=== PATIENT | female | born 1995 | race Two or more races ===

== ENCOUNTER 2019-09-21 19:16 | Observation (INO) | payer SELFPAY ==
[2019-09-21] MEDS ORDERED: IV RINGERS,LACTATED 1000ML 1,000 ML IV PRN (19:30)
[2019-09-21] MEDS ORDERED: ACETAMINOPHEN 325 MG TABLET. PO PRN (19:30)
[2019-09-21 19:56] LABS: BILIRUBIN,URINE NEGATIVE (NEG); CLARITY,URINE CLEAR; NITRITE,URINE NEGATIVE (NEG); PROTEIN,URINE NEGATIVE (NEG-TRACE); UROBILINOGEN,URINE 0.2 mg/dL (0.2 mg/dL)
[2019-09-21 20:03] LABS: COLOR,URINE STRAW
[2019-09-21 20:04] LABS: RBC,URINE OCC /HPF (0-2)
[2019-09-21 20:05] LABS: BACTERIA,URINE MANY /HPF (0-FEW); SQUAMOUS EPITHELIAL CELL,UR MANY /LPF
[2019-09-21 20:07] LABS: BARBITURATES NEG (NEG); BENZODIAZEPINES NEG (NEG); CANNABINOIDS NEG (NEG); COCAINE NEG (NEG); METHADONE NEG (NEG); OPIATES NEG (NEG); PHENCYCLIDINE NEG (NEG)
[2019-09-21 20:08] LABS: AMNIO PT NEGATIVE
[2019-09-21 20:09] LABS: AMPHETAMINE/METHAMPHETAMINE NEG (NEG)
== END 2019-09-21 21:21 | disposition home or self-care (01) ==
LOC: 3 SO LND 19:16
PROVIDERS: ADMIT Obstetrics & Gynecology; ATTEND Obstetrics & Gynecology
DX: O62.9 Abnormality of forces of labor, unspecified (principal); Z3A.38 38 weeks gestation of pregnancy
CPT/HCPCS: 36415; 80307; 81001; 84112; 87086; 87186; G0378; G0379

== ENCOUNTER 2019-09-22 01:10 | Inpatient (IN) | payer SELFPAY ==
[~2019-09-22] VITALS: Ht 152.4 cm; Wt 74.8 kg
[2019-09-22] MEDS ORDERED: IV RINGERS,LACTATED 1000ML 1,000 ML IV SCH ×3 (01:16→13:07)
[2019-09-22] MEDS ORDERED: OXYTOCIN 30 UNIT/500 ML PREMIX 500 ML IV PRN ×3 (03:15→18:30)
[2019-09-22] MEDS ORDERED: LIDOCAINE 1% PF 30 ML VIAL. INJ PRN (03:15)
[2019-09-22] MEDS ORDERED: ONDANSETRON PF 4 MG/2 ML VIAL. IV PRN ×2 (03:15→18:30)
[2019-09-22] MEDS ORDERED: MAG HYDROX/ALUMINUM HYD/SIMETH 30 ML ORAL.SUSP PO PRN ×3 (03:15→18:30)
[2019-09-22] MEDS ORDERED: TERBUTALINE 1 MG/ML VIAL. SQ PRN (03:15)
[2019-09-22] MEDS ORDERED: BUTORPHANOL 2 MG/ML VIAL. IV PRN ×2 (03:15)
[2019-09-22] MEDS ORDERED: NALBUPHINE 10 MG/ML AMPUL. IV PRN (03:15)
[2019-09-22] MEDS ORDERED: 0.9 % SODIUM CHLORIDE 10 ML DISP.SYRIN. IV PRN ×3 (03:15→18:30)
[2019-09-22] MEDS ORDERED: ACETAMINOPHEN 325 MG TABLET. PO PRN ×2 (03:15→15:15)
[2019-09-22] MEDS ORDERED: IBUPROFEN 400 MG TABLET. PO PRN (03:15)
[2019-09-22] MEDS ORDERED: fentaNYL PF VIAL 100 MCG/2 ML VIAL IV PRN (03:15)
[2019-09-22 03:46] LABS: BASO % 0 % (0-3); EOS # 0.1 x10^3/uL (0.0-0.7); EOS % 1 % (0-3); HEMATOCRIT 35.5 % (36.0-47.0); HEMOGLOBIN 12.2 g/dL (12.0-15.5); LYMPH # 2.4 x10^3/uL (1.0-4.8); LYMPH % 23 % (24-48); MEAN CORPUSCULAR HEMOGLOBIN 32 pg (25-35); MEAN CORPUSCULAR HGB CONC 35 g/dL (31-37); MEAN CORPUSCULAR VOLUME 93 fL (79-100); MONO # 0.7 x10^3/uL (0.0-1.1); MONO % 7 % (0-9); NEUT # 7.1 x10^3/uL (1.8-7.7); NEUT % 69 % (31-73); PLATELET COUNT 160 x10^3/uL (140-400); RED BLOOD COUNT 3.83 x10^6/uL (3.50-5.40); RED CELL DISTRIBUTION WIDTH 13.6 % (11.5-14.5); WHITE BLOOD COUNT 10.3 x10^3/uL (4.0-11.0)
[2019-09-22 03:47] VITALS: BP 116/69
[2019-09-22] MEDS ORDERED: IV RINGERS,LACTATED 1000ML 1,000 ML IV PRN ×2 (04:00)
[2019-09-22] MEDS ORDERED: OXYTOCIN PREMIX 30 UNIT/500 ML NS BAG. IV ONE (11:00)
[2019-09-22] MEDS ORDERED: ROPIVacaine 0.2% PF 10 ML VIAL. ONE (11:00)
[2019-09-22] MEDS ORDERED: ONDANSETRON PF 4 MG/2 ML VIAL. IVP PRN (13:15)
[2019-09-22] MEDS ORDERED: ePHEDrine PF IN SALINE 50 MG/10 ML SYRINGE. IV PRN (13:15)
[2019-09-22] MEDS ORDERED: diphenhydrAMINE 50 MG/ML VIAL IV PRN (13:15)
[2019-09-22] MEDS ORDERED: IV RINGERS,LACTATED 500ML 500 ML IV PRN (13:15)
[2019-09-22] MEDS ORDERED: PROCHLORPERAZINE 10 MG/2 ML VIAL. IV PRN (13:15)
[2019-09-22] MEDS ORDERED: L&D EPIDURAL CASSETTE 100 ML EPID PRN (13:15)
[2019-09-22] MEDS ORDERED: NALOXONE 0.4 MG/ML VIAL. IV PRN (13:15)
[2019-09-22] MEDS ORDERED: fentaNYL PF VIAL 100 MCG/2 ML VIAL EPID PRN (13:15)
[2019-09-22] MEDS ORDERED: ROPIVacaine 0.2% PF 10 ML VIAL. EPID PRN (13:15)
[2019-09-22] MEDS ORDERED: BUPIVACAINE MPF 0.25% 30 ML VIAL. EPID PRN (13:15)
[2019-09-22] MEDS: L&D EPIDURAL SYRINGE 50 ML EPID PRN ×2 (13:29→17:38)
--- NOTE | 2019-09-22 15:12 | PDOC ---
GENERAL General: 23 yrs old Trin[place] Lady [id number] EDC 10/07/19. Admitted with SROM and having Mild Contractions. VITAL SIGNS Vital Signs/I&O: Vital Signs Date Time Temp Pulse Resp B/P (MAP) Pulse Ox O2 Delivery O2 Flow Rate FiO2 09/22/19 13:31 16 98 Room Air 09/22/19 03:47 98.4 88 116/69 (85) 98.4 ALLERGIES Allergies: Allergies Coded Allergies Type Severity Reaction Last Updated Verified No Known Drug Allergies 09/21/19 No MEDS Medications: Current Medications Medications (Trade) Dose Ordered Sig/Arturo Route PRN Reason Start Time Stop Time Status Last Admin Dose Admin Ringer's Solution 1,000 ml @ 125 mls/hr Q8H IV 09/22/19 01:16 09/22/19 03:56 DC 09/22/19 03:37 Fentanyl Citrate (Fentanyl 2ml Vial) 100 mcg PRN 1X PRN EPID FOR ANESTHESIA 09/22/19 13:15 09/23/19 13:14 09/22/19 13:31 Fentanyl Citrate 50 ml @ 14 mls/hr CONT PRN EPID PAIN 09/22/19 13:15 09/22/19 13:29 LAB Lab: Laboratory Tests Test 09/22/19 03:00 White Blood Count 10.3 x10^3/uL (4.0-11.0) Red Blood Count 3.83 x10^6/uL (3.50-5.40) Hemoglobin 12.2 g/dL (12.0-15.5) Hematocrit 35.5 % (36.0-47.0) L Mean Corpuscular Volume 93 fL (79-100) Mean Corpuscular Hemoglobin 32 pg (25-35) Mean Corpuscular Hemoglobin Concent 35 g/dL (31-37) Red Cell Distribution Width 13.6 % (11.5-14.5) Platelet Count 160 x10^3/uL (140-400) Neutrophils (%) (Auto) 69 % (31-73) Lymphocytes (%) (Auto) 23 % (24-48) L Monocytes (%) (Auto) 7 % (0-9) Eosinophils (%) (Auto) 1 % (0-3) Basophils (%) (Auto) 0 % (0-3) Neutrophils # (Auto) 7.1 x10^3/uL (1.8-7.7) Lymphocytes # (Auto) 2.4 x10^3/uL (1.0-4.8) Monocytes # (Auto) 0.7 x10^3/uL (0.0-1.1) Eosinophils # (Auto) 0.1 x10^3/uL (0.0-0.7) Basophils # (Auto) 0.0 x10^3/uL (0.0-0.2) Treponema pallidum Antibody Nonreactive (Nonreactive) Laboratory Tests 09/22/19 03:00 AIDAN MTZ MD Sep 22, 2019 15:12
[2019-09-22] MEDS ORDERED: ZOLPIDEM 5 MG TABLET. PO PRN ×2 (15:15→18:30)
[2019-09-22] MEDS ORDERED: HYDROCORTISONE 1% TOPICAL OINTMENT 30GM TUBE. TP PRN ×2 (15:15→18:30)
[2019-09-22] MEDS ORDERED: PHENYLEPH/MINERAL OIL/PETROLAT RECTAL OINTMENT TUBE. RC PRN (15:15)
[2019-09-22] MEDS ORDERED: BENZOCAINE 20% TOPICAL AEROSOL SPRAY 57GM CAN. TP PRN (15:15)
[2019-09-22] MEDS ORDERED: SIMETHICONE 80 MG TAB.CHEW PO PRN (15:15)
[2019-09-22] MEDS ORDERED: MMR per PROTOCOL. MC PRN ×2 (15:15→18:30)
[2019-09-22] MEDS ORDERED: diphenhydrAMINE HCL 25 MG CAPSULE PO PRN (15:15)
[2019-09-22] MEDS ORDERED: AMPICILLIN SODIUM 2 GM in IV NORMAL SALINE 100ML 100 ML IV ONE (18:00)
[2019-09-22] MEDS ORDERED: ceFAZolin 2GM PREMIX 2 GM/50 ML BAG IV ONE (18:00)
[2019-09-22] MEDS ORDERED: LIDOCAINE 2% PF 5 ML VIAL. ONE ×2 (18:15→18:31)
[2019-09-22] MEDS ORDERED: CITRIC ACID/SODIUM CITRATE 30 ML SOLUTION. PO ONE (18:15)
[2019-09-22] MEDS ORDERED: FAMOTIDINE 20 MG/2 ML VIAL ONE (18:29)
[2019-09-22] MEDS ORDERED: oxyCODONE/APAP 5/325 1 TAB TABLET PO PRN (18:30)
[2019-09-22] MEDS ORDERED: DOCUSATE SODIUM 100 MG CAPSULE. PO PRN (18:30)
[2019-09-22] MEDS ORDERED: diphenhydrAMINE ORAL ELIXIR 12.5 MG/5 ML ML PO PRN (18:30)
[2019-09-22] MEDS ORDERED: MORPHINE PF 10 MG/10 ML AMPUL. ONE (19:01)
[2019-09-22] MEDS ORDERED: fentaNYL PF VIAL 100 MCG/2 ML VIAL ONE (19:13)
[2019-09-22] MEDS ORDERED: PHENYLEPHRINE in 0.9% NACL PF 1 MG/10 ML SYRINGE. IV ONE (19:15)
[2019-09-22] MEDS ORDERED: OXYTOCIN 10 UNIT/ML VIAL. ONE (19:18)
--- NOTE | 2019-09-22 20:10 | HP ---
ADMIT DATE: 09/22/2019 CHIEF COMPLAINT AND HISTORY OF PRESENT ILLNESS: This patient is a 23-year-old Lao lady who is a 4, para 2, history of 1 . The patient had care at [facility] and the patient came into the hospital Labor and Delivery with a history of having ruptured membranes and also having contractions and the patient admitted to the hospital. PHYSICAL EXAMINATION: Reveals vital signs being stable. Fundal height about 37 weeks. Her due date is 10/07/2019. heart tones are 146 per minute. Vertex presenting and leaking clear amniotic fluid. Pelvic exam shows cervix about 2-3 cm dilated. DIAGNOSES: 4, para 2, premature, premature labor, and spontaneous rupture of membranes. PLAN: Vaginal delivery and expecting management. AIDAN MTZ MD DR: RITO/douglas JOB#: [id number] / [id number]
[2019-09-22] MEDS: KETOROLAC 30 MG/ML VIAL. IV PRN (20:59)
--- NOTE | 2019-09-22 22:47 | OP ---
DATE OF SURGERY: 09/22/2019 PREOPERATIVE DIAGNOSES: 4, para 2, spontaneous rupture of membranes, labor, failure to progress. POSTOPERATIVE DIAGNOSES: 4, para 2, spontaneous rupture of membranes, labor, failure to progress. OPERATION PERFORMED: Lower segment section. OPERATIVE PROCEDURE: The patient was taken to the operating room. Augmentation of the epidural block was done. The patient was placed in a dorsal supine position. Troy catheter introduced in the bladder for continuous bladder drainage. Lower abdomen was prepped and draped in the usual manner. Pfannenstiel incision was done. Abdomen opened in layers and bladder flap peritoneum was dissected. Bladder was pushed way down the lower segment of the uterus and an incision was made on the lower segment of the uterus and was extended on either side using index fingers. A live male weighing 8 pounds 10 ounces, delivered at 1859 hours and with the score of 8, 9 and 9 without any problem. Cord was clamped and cut. Cord pHs were sent for and placenta removed. Uterus sutured in 2 layers using #1 chromic catgut sutures. Reperitonealization was done with continuous 0 chromic catgut sutures. Uterus placed in the abdominal cavity. All the blood clots were removed from the abdomen, and abdomen closed in layers using continuous 0 chromic catgut sutures for the peritoneum, the muscle, the fascia, 3-0 plain continuous sutures applied for subcutaneous tissue and 3-0 Vicryl subcutaneous sutures were placed. A pressure dressing was given. The patient was sent to the recovery room in good condition. No complications encountered at the time of the procedure. Estimated blood loss about 800 mL. Postoperative condition is stable. Baby is referred to process artist for further care and treatment. Mother tolerated the delivery well. No complications at this time. AIDAN MTZ MD DR: RITO/douglas JOB#: [id number] / [id number]
[2019-09-22 23:00] VITALS: BP 107/59
[2019-09-23] MEDS ORDERED: IBUPROFEN 200 MG TABLET. PO SCH
[2019-09-23 02:30] VITALS: BP 94/58
[2019-09-23 06:00] VITALS: BP 103/47
[2019-09-23] MEDS: KETOROLAC 30 MG/ML VIAL. IV PRN (06:04)
[2019-09-23] MEDS: FERROUS SULFATE 325 MG TABLET. PO SCH ×2 (08:00→16:57)
[2019-09-23] MEDS ORDERED: FERROUS SULFATE 325 MG TABLET. PO SCH (08:00)
[2019-09-23] MEDS: oxyCODONE/APAP 5/325 1 TAB TABLET PO PRN ×4 (08:30→20:49)
--- NOTE | 2019-09-23 08:36 | PDOC ---
GENERAL General: Pt feeling much better today. Breast feeding the Baby. VITAL SIGNS Vital Signs/I&O: Vital Signs Date Time Temp Pulse Resp B/P (MAP) Pulse Ox O2 Delivery O2 Flow Rate FiO2 09/23/19 06:00 98.8 82 18 103/47 (65) 98 Room Air 98.8 I & O 09/22/19 09/22/19 09/23/19 15:00 23:00 07:00 Intake Total 100 ml Output Total 400 ml Balance -300 ml ALLERGIES Allergies: Allergies Coded Allergies Type Severity Reaction Last Updated Verified No Known Drug Allergies 09/21/19 No MEDS Medications: Current Medications Medications (Trade) Dose Ordered Sig/Arturo Route PRN Reason Start Time Stop Time Status Last Admin Dose Admin Fentanyl Citrate (Fentanyl 2ml Vial) 100 mcg PRN 1X PRN EPID FOR ANESTHESIA 09/22/19 13:15 09/23/19 13:14 09/22/19 13:31 Fentanyl Citrate 50 ml @ 14 mls/hr CONT PRN EPID PAIN 09/22/19 13:15 09/22/19 17:38 Oxycodone/ Acetaminophen (Percocet 5/325) 2 tab PRN Q4HRS PRN PO MODERATE PAIN, SEVERE PAIN 09/22/19 15:15 09/23/19 08:30 Ephedrine Sulfate (Akovaz) 10 mg 1X ONCE IV 09/22/19 15:00 09/22/19 15:37 DC 09/22/19 15:39 Ketorolac Tromethamine (Toradol 30mg Vial) 30 mg PRN Q6HRS PRN IV PAIN 09/22/19 20:00 09/27/19 19:59 09/23/19 06:04 LAB Lab: Laboratory Tests Test 09/23/19 06:55 Hematocrit 27.1 % (36.0-47.0) L Laboratory Tests 09/23/19 06:55 ASSESSMENT & PLAN A&P Vital signs stable. Urine clear. Abdomen soft. Not much vaginal bleeding. AIDAN MTZ MD Sep 23, 2019 08:36
[2019-09-23 11:36] VITALS: BP 110/60
[2019-09-23] MEDS: IBUPROFEN 200 MG TABLET. PO SCH ×2 (13:38→20:48)
--- NOTE | 2019-09-23 17:01 | NUR ---
patient complaing of headache in neck and head area,instructed to drink caffeine and increase fluid po. to lie flat to see if relief
[2019-09-23] MEDS: DOCUSATE SODIUM 100 MG CAPSULE. PO PRN (17:32)
[2019-09-23 18:08] VITALS: BP 102/59
[2019-09-23 20:00] VITALS: BP 92/53
[2019-09-24 03:55] VITALS: BP 104/61
[2019-09-24] MEDS: IBUPROFEN 200 MG TABLET. PO SCH ×3 (04:09→20:21)
[2019-09-24] MEDS: oxyCODONE/APAP 5/325 1 TAB TABLET PO PRN ×4 (04:10→20:21)
--- NOTE | 2019-09-24 08:27 | PDOC ---
GENERAL General: Patient doing ok. Baby doing well. VITAL SIGNS Vital Signs/I&O: Vital Signs Date Time Temp Pulse Resp B/P (MAP) Pulse Ox O2 Delivery O2 Flow Rate FiO2 09/24/19 04:10 20 97 Room Air 09/24/19 03:55 97.7 76 104/61 (75) 97.7 I & O 09/23/19 09/23/19 09/24/19 15:00 23:00 07:00 Intake Total 360 ml 250 ml Output Total 950 ml Balance -590 ml 250 ml ALLERGIES Allergies: Allergies Coded Allergies Type Severity Reaction Last Updated Verified No Known Drug Allergies 09/21/19 No ASSESSMENT & PLAN A&P Vital signs stable. Lochia normal. Plan dismissal in am.tomorrow. AIDAN MTZ MD Sep 24, 2019 08:27
[2019-09-24] MEDS: DOCUSATE SODIUM 100 MG CAPSULE. PO PRN ×2 (08:51→20:20)
[2019-09-24] MEDS: FERROUS SULFATE 325 MG TABLET. PO SCH ×2 (08:51→20:21)
[2019-09-24] MEDS: MAGNESIUM HYDROXIDE 2,400 MG/30 ML ORAL.SUSP. PO PRN (08:52)
[2019-09-24 08:56] VITALS: BP 109/66
--- NOTE | 2019-09-24 12:40 | NUR ---
Dr. Cervantes here to see pt and used the power driven brush maker phone to talk with the patient. Dr. Cervantes told patient to continue to take pain meds and to lay down when her head is hurting. He said someone would check in with her tomorrow. Encouraged po intake and offered caffeine. Pt refused caffeine but agreed to drink plenty of water. Will continue to monitor and support.
--- NOTE | 2019-09-24 12:59 | PDOC ---
Date and Time Called to evaluate headache after delivery. [id number] Patient had labor epidural and c section 09/22. 09/23 developed positional headache. LEYVA is worse when up, complete resolution when supine. Denies visual changes, nausea,vomiting, nuchal rigidity. RN reports that she is afebrile. Sitting up eating lunch with what appears to be minimal discomfort. Imp Dural puncture headache Plan Options discussed with patient, plan is to wait and reevaluate tomorrow. She may need a blood patch at that point. Current Medications Current Medications Ringer's Solution 1,000 ml @ 125 mls/hr Q8H IV Last administered on 09/22/19at 03:37; Start 09/22/19 at 01:16; Stop 09/22/19 at 03:56; Status DC Sodium Chloride (Normal Saline Flush) 3 ml QSHIFT PRN IV AFTER MEDS AND BLOOD DRAWS; Start 09/22/19 at 03:15; Stop 09/23/19 at 16:40; Status DC Ringer's Solution 1,000 ml @ 125 mls/hr Q8H IV ; Start 09/22/19 at 03:06; Stop 09/22/19 at 03:56; Status DC Nalbuphine HCl (Nubain) 10 mg PRN Q1HR PRN IV Severe labor pain; Start 09/22/19 at 03:15; Stop 09/23/19 at 16:40; Status DC Butorphanol Tartrate (Stadol) 1 mg PRN Q1HR PRN IV mild to moderate labor pain; Start 09/22/19 at 03:15; Stop 09/23/19 at 16:40; Status DC Butorphanol Tartrate (Stadol) 2 mg PRN Q1HR PRN IV Severe labor pain; Start 09/22/19 at 03:15; Stop 09/23/19 at 16:40; Status DC Fentanyl Citrate (Fentanyl 2ml Vial) 100 mcg PRN Q30MIN PRN IV Severe pain; Start 09/22/19 at 03:15; Stop 09/23/19 at 16:40; Status DC Acetaminophen (Tylenol) 650 mg PRN Q6HRS PRN PO MILD PAIN / TEMP; Start 09/22/19 at 03:15; Stop 09/22/19 at 15:46; Status DC Ondansetron HCl (Zofran) 4 mg PRN Q4HRS PRN IV NAUSEA/VOMITING 1ST CHOICE; Start 09/22/19 at 03:15; Stop 09/22/19 at 15:47; Status DC Al Hydroxide/Mg Hydroxide (Mylanta Plus Xs) 30 ml PRN Q4HRS PRN PO HEARTBURN / GAS; Start 09/22/19 at 03:15; Status Cancel Terbutaline Sulfate (Brethine) 0.25 mg 1X PRN PRN SQ SEE COMMENTS; Start 09/22/19 at 03:15; Stop 09/23/19 at 03:14; Status DC Lidocaine HCl (Xylocaine 1% Pf 30ml Vial) 30 ml 1X PRN PRN INJ SEE COMMENTS; Start 09/22/19 at 03:15; Stop 09/23/19 at 16:40; Status DC Oxytocin/Sodium Chloride 500 ml @ 0 mls/hr CONT PRN PRN IV Post delivery bleeding; Start 09/22/19 at 03:15; Stop 09/23/19 at 16:40; Status DC Ibuprofen (Motrin) 800 mg PRN Q6HRS PRN PO MODERATE PAIN 4-6; Start 09/22/19 at 03:15; Stop 09/22/19 at 15:47; Status DC Ringer's Solution 1,000 ml @ 125 mls/hr Q8H PRN IV Hydration; Start 09/22/19 at 04:00; Stop 09/22/19 at 11:15; Status DC Ringer's Solution 1,000 ml @ 125 mls/hr Q8H PRN IV hydration Last administered on 09/23/19at 00:42; Start 09/22/19 at 04:00; Stop 09/23/19 at 16:40; Status DC Ringer's Solution 1,000 ml @ 1,000 mls/hr Q1H IV ; Start 09/22/19 at 13:07; Stop 09/22/19 at 14:06; Status DC Ringer's Solution 500 ml @ 500 mls/hr 1X PRN PRN IV HYPOTENSION; Start 09/22/19 at 13:15; Stop 09/23/19 at 13:14; Status DC Ephedrine Sulfate (ePHEDrine PF IN SALINE SYRINGE) 10 mg PRN Q2MIN PRN IV IF SBP<90; Start 09/22/19 at 13:15; Stop 09/23/19 at 16:40; Status DC Naloxone HCl (Narcan) 0.04 mg PRN Q1MIN PRN IV SEE COMMENTS; Start 09/22/19 at 13:15; Stop 09/23/19 at 16:40; Status DC Fentanyl Citrate (Fentanyl 2ml Vial) 100 mcg PRN 1X PRN EPID FOR ANESTHESIA Last administered on 09/22/19at 13:31; Start 09/22/19 at 13:15; Stop 09/23/19 at 13:14; Status DC Bupivacaine HCl (Sensorcaine Mpf 0.25%) 10 ml PRN 1X PRN EPID FOR ANESTHESIA; Start 09/22/19 at 13:15; Stop 09/23/19 at 13:14; Status DC Fentanyl Citrate 100 ml @ 14 mls/hr CONT PRN EPID PAIN; Start 09/22/19 at 13:15; Stop 09/23/19 at 16:40; Status DC Fentanyl Citrate 50 ml @ 14 mls/hr CONT PRN EPID PAIN Last administered on 09/22/19at 17:38; Start 09/22/19 at 13:15; Stop 09/23/19 at 16:40; Status DC Ondansetron HCl (Zofran) 4 mg PRN Q6HRS PRN IVP NAUSEA/VOMITING; Start 09/22/19 at 13:15; Status Cancel Prochlorperazine Edisylate (Compazine) 5 mg PRN Q6HRS PRN IV NAUSEA/VOMITING, 2ND CHOICE; Start 09/22/19 at 13:15; Stop 09/23/19 at 16:40; Status DC Diphenhydramine HCl (Benadryl) 12.5 mg PRN Q2HR PRN IV ITCHING; Start 09/22/19 at 13:15; Stop 09/23/19 at 16:40; Status DC Ropivacaine (Naropin 0.2%) 20 ml 1X PRN PRN EPID PER ANESTHESIA; Start 09/22/19 at 13:15; Stop 09/23/19 at 16:40; Status DC Ephedrine Sulfate (Akovaz) 50 mg STK-MED ONCE .ROUTE ; Start 09/22/19 at 14:57; Stop 09/22/19 at 14:57; Status DC Sodium Chloride (Normal Saline Flush) 10 ml QSHIFT PRN IV AFTER MEDS AND BLOOD DRAWS; Start 09/22/19 at 15:15; Stop 09/23/19 at 16:40; Status DC Oxytocin/Sodium Chloride 500 ml @ 62.5 mls/hr CONT PRN IV SEE I/O RECORD; Start 09/22/19 at 15:15; Stop 09/22/19 at 23:14; Status DC Acetaminophen (Tylenol) 650 mg PRN Q6HRS PRN PO MILD PAIN / TEMP; Start 09/22/19 at 15:15 Ibuprofen (Motrin) 600 mg Q6HRS PO Last administered on 09/24/19at 04:09; Start 09/22/19 at 18:00 Docusate Sodium (Colace) 100 mg PRN BID PRN PO CONSTIPATION Last administered on 09/24/19at 08:51; Start 09/22/19 at 15:15 Magnesium Hydroxide (Milk Of Magnesia) 2,400 mg PRN DAILY PRN PO CONSTIPATION Last administered on 09/24/19at 08:52; Start 09/22/19 at 15:15 Al Hydroxide/Mg Hydroxide (Mylanta Plus Xs) 30 ml PRN Q4HRS PRN PO HEARTBURN / GAS; Start 09/22/19 at 15:15; Status Cancel Simethicone (Gas-X) 80 mg PRN AFTMEALHC PRN PO GAS / BLOATING; Start 09/22/19 at 15:15 Diphenhydramine HCl (Benadryl) 25 mg PRN Q6HRS PRN PO ITCHING; Start 09/22/19 at 15:15 Benzocaine (Americaine) 1 spray PRN QID PRN TP TOPICAL PAIN; Start 09/22/19 at 15:15 Phenyleph/Shark Oil/Min Oil/Petrol (Preparation H) 1 helena PRN QID PRN RC RECTAL PAIN; Start 09/22/19 at 15:15 Hydrocortisone (Cortaid) 1 helena PRN QID PRN TP RECTAL PAIN; Start 09/22/19 at 15:15 Ferrous Sulfate (Feosol) 325 mg BIDWMEALS PO ; Start 09/23/19 at 08:00; Stop 09/22/19 at 20:05; Status DC Zolpidem Tartrate (Ambien) 5 mg PRN QHS PRN PO INSOMNIA, MAY REPEAT X1; Start 09/22/19 at 15:15; Status Cancel Info (Do NOT chart on this placeholder) 1 ea 1X PRN PRN MC SEE COMMENTS; Start 09/22/19 at 15:15; Status Cancel Info (Do NOT chart on this placeholder) 1 ea 1X PRN PRN MC SEE COMMENTS; Start 09/22/19 at 15:15; Status Cancel Oxycodone/ Acetaminophen (Percocet 5/325) 2 tab PRN Q4HRS PRN PO MODERATE PAIN, SEVERE PAIN Last administered on 09/24/19at 08:52; Start 09/22/19 at 15:15 Ephedrine Sulfate (Akovaz) 10 mg 1X ONCE IV ; Start 09/22/19 at 15:30; Stop 09/22/19 at 15:31; Status UNV Ephedrine Sulfate (Akovaz) 10 mg 1X ONCE IV Last administered on 09/22/19at 15:39; Start 09/22/19 at 15:00; Stop 09/22/19 at 15:37; Status DC Ampicillin Sodium 2 gm/Sodium Chloride 100 ml @ 200 mls/hr 1X ONCE IV ; Start 09/22/19 at 18:00; Stop 09/23/19 at 16:40; Status DC Lidocaine HCl (Lidocaine Pf 2% Vial) 5 ml STK-MED ONCE .ROUTE ; Start 09/22/19 at 18:15; Stop 09/22/19 at 18:15; Status DC Cefazolin Sodium/ Dextrose 50 ml @ 100 mls/hr 1X ONCE IV ; Start 09/22/19 at 18:15; Stop 09/23/19 at 16:40; Status DC Citric Acid/ Sodium Citrate (Bicitra) 30 ml 1X ONCE PO ; Start 09/22/19 at 18:15; Stop 09/23/19 at 16:40; Status DC Famotidine (Pepcid Vial) 20 mg STK-MED ONCE .ROUTE ; Start 09/22/19 at 18:29; Stop 09/22/19 at 18:29; Status DC Sodium Chloride (Normal Saline Flush) 3 ml QSHIFT PRN IV AFTER MEDS AND BLOOD DRAWS; Start 09/22/19 at 18:30; Stop 09/22/19 at 20:05; Status DC Oxytocin/Sodium Chloride 500 ml @ 125 mls/hr CONT PRN IV EXCESSIVE POST- BLEEDING; Start 09/22/19 at 18:30; Stop 09/23/19 at 02:29; Status DC Ibuprofen (Motrin) 600 mg Q6HRS PO ; Start 09/23/19 at 00:00; Stop 09/22/19 at 20:06; Status DC Ondansetron HCl (Zofran) 4 mg PRN Q6HRS PRN IV NAUSEA/VOMITING; Start 09/22/19 at 18:30; Stop 09/23/19 at 16:40; Status DC Docusate Sodium (Colace) 100 mg PRN BID PRN PO HARD STOOLS; Start 09/22/19 at 18:30; Stop 09/22/19 at 20:06; Status DC Al Hydroxide/Mg Hydroxide (Mylanta Plus Xs) 30 ml PRN Q4HRS PRN PO HEARTBURN / GAS; Start 09/22/19 at 18:30 Diphenhydramine HCl (Benadryl Oral Elixir) 12.5 mg PRN Q6HRS PRN PO ITCHING; Start 09/22/19 at 18:30 Hydrocortisone (Cortaid) 1 helena PRN QID PRN TP RECTAL PAIN; Start 09/22/19 at 18:30; Stop 09/22/19 at 20:06; Status DC Ferrous Sulfate (Feosol) 325 mg BIDWMEALS PO Last administered on 09/24/19at 08:51; Start 09/23/19 at 08:00 Zolpidem Tartrate (Ambien) 5 mg PRN QHS PRN PO INSOMNIA, MAY REPEAT X1; Start 09/22/19 at 18:30 Info (Do NOT chart on this placeholder) 1 ea PRN 1X PRN MC SEE COMMENTS; Start 09/22/19 at 18:30; Stop 09/23/19 at 16:40; Status DC Info (Do NOT chart on this placeholder) 1 ea PRN 1X PRN MC SEE COMMENTS; Start 09/22/19 at 18:30; Stop 09/23/19 at 16:40; Status DC Oxycodone/ Acetaminophen (Percocet 5/325) 2 tab PRN Q4HRS PRN PO MODERATE PAIN, SEVERE PAIN; Start 09/22/19 at 18:30; Status Cancel Lidocaine HCl (Lidocaine Pf 2% Vial) 5 ml STK-MED ONCE .ROUTE ; Start 09/22/19 at 18:31; Stop 09/22/19 at 18:31; Status DC Morphine Sulfate (Morphine Preservative Free) 10 mg STK-MED ONCE .ROUTE ; Start 09/22/19 at 19:01; Stop 09/22/19 at 19:01; Status DC Fentanyl Citrate (Fentanyl 2ml Vial) 100 mcg STK-MED ONCE .ROUTE ; Start 09/22/19 at 19:13; Stop 09/22/19 at 19:13; Status DC Phenylephrine HCl (PHENYLEPHRINE in 0.9% NACL PF) 1 mg STK-MED ONCE IV ; Start 09/22/19 at 19:15; Stop 09/22/19 at 19:16; Status DC Oxytocin (Pitocin) 10 unit STK-MED ONCE .ROUTE ; Start 09/22/19 at 19:18; Stop 09/22/19 at 19:18; Status DC Ketorolac Tromethamine (Toradol 30mg Vial) 30 mg PRN Q6HRS PRN IV PAIN MODERATE/INFLAMMATION Last administered on 09/23/19at 06:04; Start 09/22/19 at 20:00; Stop 09/23/19 at 16:40; Status DC Oxytocin/Sodium Chloride (Oxytocin Premix Infusion) 30 unit STK-MED ONCE IV ; Start 09/22/19 at 11:00; Stop 09/23/19 at 08:38; Status DC Ropivacaine (Naropin 0.2%) 10 ml STK-MED ONCE .ROUTE ; Start 09/22/19 at 11:00; Stop 09/23/19 at 08:38; Status DC Cefazolin Sodium/ Dextrose (Ancef 2gm Premix) 2 gm STK-MED ONCE IV ; Start 09/22/19 at 18:00; Stop 09/23/19 at 12:51; Status DC Pertinent Labs/Test Laboratory Tests Test 09/23/19 06:55 Hematocrit 27.1 % (36.0-47.0) LAST VITALS Vital Signs Date Time Temp Pulse Resp B/P (MAP) Pulse Ox O2 Delivery O2 Flow Rate FiO2 09/24/19 10:00 18 Room Air 09/24/19 08:56 97.7 109/66 (80) 96 97.7 09/24/19 03:55 76 SHAYNA BUNDY MD 12, 2019 12:59
[2019-09-24 15:39] VITALS: BP 109/67
[2019-09-24 20:25] VITALS: BP 106/56
[2019-09-25 04:30] VITALS: BP 110/68
[2019-09-25] MEDS: IBUPROFEN 200 MG TABLET. PO SCH ×2 (04:32→14:46)
[2019-09-25] MEDS: oxyCODONE/APAP 5/325 1 TAB TABLET PO PRN ×3 (04:32→14:46)
[2019-09-25 09:30] VITALS: BP 106/73
[2019-09-25] MEDS: FERROUS SULFATE 325 MG TABLET. PO SCH (09:41)
[2019-09-25] MEDS: MAGNESIUM HYDROXIDE 2,400 MG/30 ML ORAL.SUSP. PO PRN (09:42)
--- NOTE | 2019-09-25 11:10 | NUR ---
Dr Cervantes here to evaluate spinal H/A again today. Compliance Advisor phone used to present options and the pt opted to do conservative measures at this time. Will cont. to monitor and support.
--- NOTE | 2019-09-25 11:14 | PDOC ---
Date and Time Positional headache is unchanged. No new symptoms. 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 Continue with conservative treatment at home Return if any new symptoms (specifically visual changes, nausea, change in character of headache, fever, stiff neck) appear The headache should improve and or resolve in the next 2-3 days B. Blood patch Patient expressed an understanding and opted for conservative treatment at this time, She is aware that she can return for a blood patch, should that become necessary, at any point in time. Current Medications Current Medications Ringer's Solution 1,000 ml @ 125 mls/hr Q8H IV Last administered on 09/22/19at 03:37; Start 09/22/19 at 01:16; Stop 09/22/19 at 03:56; Status DC Sodium Chloride (Normal Saline Flush) 3 ml QSHIFT PRN IV AFTER MEDS AND BLOOD DRAWS; Start 09/22/19 at 03:15; Stop 09/23/19 at 16:40; Status DC Ringer's Solution 1,000 ml @ 125 mls/hr Q8H IV ; Start 09/22/19 at 03:06; Stop 09/22/19 at 03:56; Status DC Nalbuphine HCl (Nubain) 10 mg PRN Q1HR PRN IV Severe labor pain; Start 09/22/19 at 03:15; Stop 09/23/19 at 16:40; Status DC Butorphanol Tartrate (Stadol) 1 mg PRN Q1HR PRN IV mild to moderate labor pain; Start 09/22/19 at 03:15; Stop 09/23/19 at 16:40; Status DC Butorphanol Tartrate (Stadol) 2 mg PRN Q1HR PRN IV Severe labor pain; Start 09/22/19 at 03:15; Stop 09/23/19 at 16:40; Status DC Fentanyl Citrate (Fentanyl 2ml Vial) 100 mcg PRN Q30MIN PRN IV Severe pain; Start 09/22/19 at 03:15; Stop 09/23/19 at 16:40; Status DC Acetaminophen (Tylenol) 650 mg PRN Q6HRS PRN PO MILD PAIN / TEMP; Start 09/22/19 at 03:15; Stop 09/22/19 at 15:46; Status DC Ondansetron HCl (Zofran) 4 mg PRN Q4HRS PRN IV NAUSEA/VOMITING 1ST CHOICE; Start 09/22/19 at 03:15; Stop 09/22/19 at 15:47; Status DC Al Hydroxide/Mg Hydroxide (Mylanta Plus Xs) 30 ml PRN Q4HRS PRN PO HEARTBURN / GAS; Start 09/22/19 at 03:15; Status Cancel Terbutaline Sulfate (Brethine) 0.25 mg 1X PRN PRN SQ SEE COMMENTS; Start 09/22/19 at 03:15; Stop 09/23/19 at 03:14; Status DC Lidocaine HCl (Xylocaine 1% Pf 30ml Vial) 30 ml 1X PRN PRN INJ SEE COMMENTS; Start 09/22/19 at 03:15; Stop 09/23/19 at 16:40; Status DC Oxytocin/Sodium Chloride 500 ml @ 0 mls/hr CONT PRN PRN IV Post delivery bleeding; Start 09/22/19 at 03:15; Stop 09/23/19 at 16:40; Status DC Ibuprofen (Motrin) 800 mg PRN Q6HRS PRN PO MODERATE PAIN 4-6; Start 09/22/19 at 03:15; Stop 09/22/19 at 15:47; Status DC Ringer's Solution 1,000 ml @ 125 mls/hr Q8H PRN IV Hydration; Start 09/22/19 at 04:00; Stop 09/22/19 at 11:15; Status DC Ringer's Solution 1,000 ml @ 125 mls/hr Q8H PRN IV hydration Last administered on 09/23/19at 00:42; Start 09/22/19 at 04:00; Stop 09/23/19 at 16:40; Status DC Ringer's Solution 1,000 ml @ 1,000 mls/hr Q1H IV ; Start 09/22/19 at 13:07; Stop 09/22/19 at 14:06; Status DC Ringer's Solution 500 ml @ 500 mls/hr 1X PRN PRN IV HYPOTENSION; Start 09/22/19 at 13:15; Stop 09/23/19 at 13:14; Status DC Ephedrine Sulfate (ePHEDrine PF IN SALINE SYRINGE) 10 mg PRN Q2MIN PRN IV IF SBP<90; Start 09/22/19 at 13:15; Stop 09/23/19 at 16:40; Status DC Naloxone HCl (Narcan) 0.04 mg PRN Q1MIN PRN IV SEE COMMENTS; Start 09/22/19 at 13:15; Stop 09/23/19 at 16:40; Status DC Fentanyl Citrate (Fentanyl 2ml Vial) 100 mcg PRN 1X PRN EPID FOR ANESTHESIA Last administered on 09/22/19at 13:31; Start 09/22/19 at 13:15; Stop 09/23/19 at 13:14; Status DC Bupivacaine HCl (Sensorcaine Mpf 0.25%) 10 ml PRN 1X PRN EPID FOR ANESTHESIA; Start 09/22/19 at 13:15; Stop 09/23/19 at 13:14; Status DC Fentanyl Citrate 100 ml @ 14 mls/hr CONT PRN EPID PAIN; Start 09/22/19 at 13:15; Stop 09/23/19 at 16:40; Status DC Fentanyl Citrate 50 ml @ 14 mls/hr CONT PRN EPID PAIN Last administered on 09/22/19at 17:38; Start 09/22/19 at 13:15; Stop 09/23/19 at 16:40; Status DC Ondansetron HCl (Zofran) 4 mg PRN Q6HRS PRN IVP NAUSEA/VOMITING; Start 09/22/19 at 13:15; Status Cancel Prochlorperazine Edisylate (Compazine) 5 mg PRN Q6HRS PRN IV NAUSEA/VOMITING, 2ND CHOICE; Start 09/22/19 at 13:15; Stop 09/23/19 at 16:40; Status DC Diphenhydramine HCl (Benadryl) 12.5 mg PRN Q2HR PRN IV ITCHING; Start 09/22/19 at 13:15; Stop 09/23/19 at 16:40; Status DC Ropivacaine (Naropin 0.2%) 20 ml 1X PRN PRN EPID PER ANESTHESIA; Start 09/22/19 at 13:15; Stop 09/23/19 at 16:40; Status DC Ephedrine Sulfate (Akovaz) 50 mg STK-MED ONCE .ROUTE ; Start 09/22/19 at 14:57; Stop 09/22/19 at 14:57; Status DC Sodium Chloride (Normal Saline Flush) 10 ml QSHIFT PRN IV AFTER MEDS AND BLOOD DRAWS; Start 09/22/19 at 15:15; Stop 09/23/19 at 16:40; Status DC Oxytocin/Sodium Chloride 500 ml @ 62.5 mls/hr CONT PRN IV SEE I/O RECORD; Start 09/22/19 at 15:15; Stop 09/22/19 at 23:14; Status DC Acetaminophen (Tylenol) 650 mg PRN Q6HRS PRN PO MILD PAIN / TEMP; Start 09/22/19 at 15:15 Ibuprofen (Motrin) 600 mg Q6HRS PO Last administered on 09/25/19at 04:32; Start 09/22/19 at 18:00 Docusate Sodium (Colace) 100 mg PRN BID PRN PO CONSTIPATION Last administered on 09/24/19at 20:20; Start 09/22/19 at 15:15 Magnesium Hydroxide (Milk Of Magnesia) 2,400 mg PRN DAILY PRN PO CONSTIPATION Last administered on 09/25/19at 09:42; Start 09/22/19 at 15:15 Al Hydroxide/Mg Hydroxide (Mylanta Plus Xs) 30 ml PRN Q4HRS PRN PO HEARTBURN / GAS; Start 09/22/19 at 15:15; Status Cancel Simethicone (Gas-X) 80 mg PRN AFTMEALHC PRN PO GAS / BLOATING; Start 09/22/19 at 15:15 Diphenhydramine HCl (Benadryl) 25 mg PRN Q6HRS PRN PO ITCHING; Start 09/22/19 at 15:15 Benzocaine (Americaine) 1 spray PRN QID PRN TP TOPICAL PAIN; Start 09/22/19 at 15:15 Phenyleph/Shark Oil/Min Oil/Petrol (Preparation H) 1 helena PRN QID PRN RC RECTAL PAIN; Start 09/22/19 at 15:15 Hydrocortisone (Cortaid) 1 helena PRN QID PRN TP RECTAL PAIN; Start 09/22/19 at 15:15 Ferrous Sulfate (Feosol) 325 mg BIDWMEALS PO ; Start 09/23/19 at 08:00; Stop 09/22/19 at 20:05; Status DC Zolpidem Tartrate (Ambien) 5 mg PRN QHS PRN PO INSOMNIA, MAY REPEAT X1; Start 09/22/19 at 15:15; Status Cancel Info (Do NOT chart on this placeholder) 1 ea 1X PRN PRN MC SEE COMMENTS; Start 09/22/19 at 15:15; Status Cancel Info (Do NOT chart on this placeholder) 1 ea 1X PRN PRN MC SEE COMMENTS; Start 09/22/19 at 15:15; Status Cancel Oxycodone/ Acetaminophen (Percocet 5/325) 2 tab PRN Q4HRS PRN PO MODERATE PAIN, SEVERE PAIN Last administered on 09/25/19at 09:41; Start 09/22/19 at 15:15 Ephedrine Sulfate (Akovaz) 10 mg 1X ONCE IV ; Start 09/22/19 at 15:30; Stop 09/22/19 at 15:31; Status UNV Ephedrine Sulfate (Akovaz) 10 mg 1X ONCE IV Last administered on 09/22/19at 15:39; Start 09/22/19 at 15:00; Stop 09/22/19 at 15:37; Status DC Ampicillin Sodium 2 gm/Sodium Chloride 100 ml @ 200 mls/hr 1X ONCE IV ; Start 09/22/19 at 18:00; Stop 09/23/19 at 16:40; Status DC Lidocaine HCl (Lidocaine Pf 2% Vial) 5 ml STK-MED ONCE .ROUTE ; Start 09/22/19 at 18:15; Stop 09/22/19 at 18:15; Status DC Cefazolin Sodium/ Dextrose 50 ml @ 100 mls/hr 1X ONCE IV ; Start 09/22/19 at 18:15; Stop 09/23/19 at 16:40; Status DC Citric Acid/ Sodium Citrate (Bicitra) 30 ml 1X ONCE PO ; Start 09/22/19 at 18:15; Stop 09/23/19 at 16:40; Status DC Famotidine (Pepcid Vial) 20 mg STK-MED ONCE .ROUTE ; Start 09/22/19 at 18:29; Stop 09/22/19 at 18:29; Status DC Sodium Chloride (Normal Saline Flush) 3 ml QSHIFT PRN IV AFTER MEDS AND BLOOD DRAWS; Start 09/22/19 at 18:30; Stop 09/22/19 at 20:05; Status DC Oxytocin/Sodium Chloride 500 ml @ 125 mls/hr CONT PRN IV EXCESSIVE POST- BLEEDING; Start 09/22/19 at 18:30; Stop 09/23/19 at 02:29; Status DC Ibuprofen (Motrin) 600 mg Q6HRS PO ; Start 09/23/19 at 00:00; Stop 09/22/19 at 20:06; Status DC Ondansetron HCl (Zofran) 4 mg PRN Q6HRS PRN IV NAUSEA/VOMITING; Start 09/22/19 at 18:30; Stop 09/23/19 at 16:40; Status DC Docusate Sodium (Colace) 100 mg PRN BID PRN PO HARD STOOLS; Start 09/22/19 at 18:30; Stop 09/22/19 at 20:06; Status DC Al Hydroxide/Mg Hydroxide (Mylanta Plus Xs) 30 ml PRN Q4HRS PRN PO HEARTBURN / GAS; Start 09/22/19 at 18:30 Diphenhydramine HCl (Benadryl Oral Elixir) 12.5 mg PRN Q6HRS PRN PO ITCHING; Start 09/22/19 at 18:30 Hydrocortisone (Cortaid) 1 helena PRN QID PRN TP RECTAL PAIN; Start 09/22/19 at 18:30; Stop 09/22/19 at 20:06; Status DC Ferrous Sulfate (Feosol) 325 mg BIDWMEALS PO Last administered on 09/25/19at 09:41; Start 09/23/19 at 08:00 Zolpidem Tartrate (Ambien) 5 mg PRN QHS PRN PO INSOMNIA, MAY REPEAT X1; Start 09/22/19 at 18:30 Info (Do NOT chart on this placeholder) 1 ea PRN 1X PRN MC SEE COMMENTS; Start 09/22/19 at 18:30; Stop 09/23/19 at 16:40; Status DC Info (Do NOT chart on this placeholder) 1 ea PRN 1X PRN MC SEE COMMENTS; Start 09/22/19 at 18:30; Stop 09/23/19 at 16:40; Status DC Oxycodone/ Acetaminophen (Percocet 5/325) 2 tab PRN Q4HRS PRN PO MODERATE PAIN, SEVERE PAIN; Start 09/22/19 at 18:30; Status Cancel Lidocaine HCl (Lidocaine Pf 2% Vial) 5 ml STK-MED ONCE .ROUTE ; Start 09/22/19 at 18:31; Stop 09/22/19 at 18:31; Status DC Morphine Sulfate (Morphine Preservative Free) 10 mg STK-MED ONCE .ROUTE ; Start 09/22/19 at 19:01; Stop 09/22/19 at 19:01; Status DC Fentanyl Citrate (Fentanyl 2ml Vial) 100 mcg STK-MED ONCE .ROUTE ; Start 09/22/19 at 19:13; Stop 09/22/19 at 19:13; Status DC Phenylephrine HCl (PHENYLEPHRINE in 0.9% NACL PF) 1 mg STK-MED ONCE IV ; Start 09/22/19 at 19:15; Stop 09/22/19 at 19:16; Status DC Oxytocin (Pitocin) 10 unit STK-MED ONCE .ROUTE ; Start 09/22/19 at 19:18; Stop 09/22/19 at 19:18; Status DC Ketorolac Tromethamine (Toradol 30mg Vial) 30 mg PRN Q6HRS PRN IV PAIN MODERATE/INFLAMMATION Last administered on 09/23/19at 06:04; Start 09/22/19 at 20:00; Stop 09/23/19 at 16:40; Status DC Oxytocin/Sodium Chloride (Oxytocin Premix Infusion) 30 unit STK-MED ONCE IV ; Start 09/22/19 at 11:00; Stop 09/23/19 at 08:38; Status DC Ropivacaine (Naropin 0.2%) 10 ml STK-MED ONCE .ROUTE ; Start 09/22/19 at 11:00; Stop 09/23/19 at 08:38; Status DC Cefazolin Sodium/ Dextrose (Ancef 2gm Premix) 2 gm STK-MED ONCE IV ; Start 09/22/19 at 18:00; Stop 09/23/19 at 12:51; Status DC LAST VITALS Vital Signs Date Time Temp Pulse Resp B/P (MAP) Pulse Ox O2 Delivery O2 Flow Rate FiO2 09/25/19 09:41 18 Room Air 09/25/19 09:30 98.4 74 106/73 (84) 95 98.4 SHAYNA BUNDY MD Sep 25, 2019 11:14
[2019-09-25 11:25] VITALS: BP 120/78
--- NOTE | 2019-09-25 11:25 | PDOC ---
GENERAL General: Patient has headaches. No other Problems. VITAL SIGNS Vital Signs/I&O: Vital Signs Date Time Temp Pulse Resp B/P (MAP) Pulse Ox O2 Delivery O2 Flow Rate FiO2 09/25/19 09:41 18 Room Air 09/25/19 09:30 98.4 74 106/73 (84) 95 98.4 ALLERGIES Allergies: Allergies Coded Allergies Type Severity Reaction Last Updated Verified No Known Drug Allergies 09/21/19 No ASSESSMENT & PLAN A&P Patient has talked with Buggy Loader regarding headaches. Likes to go home today. Will see her in office in 2 weeks. AIDAN MTZ MD Sep 25, 2019 11:25
--- NOTE | 2019-09-25 14:10 | NUR ---
Small bottle of Coke with caffeine given to pt with a cup of ice. Encouraged her to drink it and lay flat. Checked with pt and offered pain meds and she verbalized she was feeling ok after drinking the bottle of coke. I walked pt down the hallway and back and she tolerated it well, still with some pain in her head and neck but less than before. Will start working on patient's discharge paperwork.
[2019-09-25 14:45] VITALS: BP 110/71
== END 2019-09-25 16:15 | disposition home or self-care (01) | DRG 788 ==
LOC: 3 SO LND 01:10 → OBSVTOIN 01:10 → 3 NORTH 23:00
PROVIDERS: ADMIT Obstetrics & Gynecology; ATTEND Obstetrics & Gynecology
PROC: 10D00Z1 Extraction of Products of Conception, Low, Open Approach (ICD-10-PCS; principal; 2019-09-22)
DX: O60.14X0 Preterm labor third trimester with preterm delivery third trimester, not applicable or unspecified (principal); Z37.0 Single live birth; O62.2 Other uterine inertia; Z3A.37 37 weeks gestation of pregnancy
CPT/HCPCS: 36415; 85014; 85025; 86592; 86850; 86900; 86901; J0696; J1885; J2001; J2274; J2370; J2590; J2795; J3010; J3490; J7120; G0378